=== PATIENT | female | born 1980 | race Two or more races ===

== ENCOUNTER 2020-04-04 14:36 | Emergency (ER) | payer MEDICAID ==
[~2020-04-04] VITALS: Ht 157.5 cm; Wt 72.6 kg
--- NOTE | 2020-04-04 15:10 | NUR ---
ED Nurse Note: PT walked in from home. She walks with a slight limp. Vitals are stable on RA. She is A/O/4. States she fell on 03/30 and twisted her both ankles. There is purple discoloration on both medial ankles. resting comfortably no signs of acute distress.
--- NOTE | 2020-04-04 16:19 | Emergency Room Report ---
History of Present Illness General Chief Complaint: Lower Extremity Injury Source: Patient Present Illness HPI 39-year-old female with no past medical history here status post fall x5 days. Reports that she missed steps and twisted both ankles. Complains of bruising of the left lateral ankle and foot. Has not taken medication for symptom relief. Is neurovascularly intact. Denies any tingling numbness. Has a steady gait. Rates pain 5-10 without radiation. Has full active motion. Denies , denies head injury or loss of consciousness. Denies chest pain or shortness of breath, no other associate symptoms. Denies taking any blood thinners. Allergies: Coded Allergies: No Known Allergies (Unverified , 04/04/20) COVID-19 Screening Contact w/high risk pt: No Experienced COVID-19 symptoms?: No COVID-19 Testing performed RIG MECHANIC: No Patient History Past Medical History: see triage record Past Surgical History: none Pertinent Family History: none Last Menstrual Period: 03/24 Now: No Immunizations: UTD Reviewed Nursing Documentation: PMH: Agreed; PSxH: Agreed Nursing Documentation-PMH Past Medical History: No Stated History Review of Systems All Other Systems: negative except mentioned in HPI Physical Exam Vital Signs Date Time Temp Pulse Resp B/P (MAP) Pulse Ox O2 Delivery O2 Flow Rate FiO2 04/04/20 15:01 97.7 83 18 121/73 (89) 96 Room Air Sp02 EP Interpretation: reviewed, normal General Appearance: normal inspection Head: normocephalic, atraumatic Eyes: bilateral eye normal inspection, bilateral eye PERRL ENT: hearing grossly normal, normal pharynx, no angioedema, normal voice Neck: full range of motion, supple/symm/no masses Respiratory: chest non-tender, lungs clear, normal breath sounds, speaking full sentences Cardiovascular #1: regular rate, rhythm, no edema Cardiovascular #2: 2+ carotid (R), 2+ carotid (L), 2+ radial (R), 2+ radial (L) , 2+ dorsalis pedis (R), 2+ dorsalis pedis (L) Gastrointestinal: normal bowel sounds, non tender, soft, non-distended, no guarding, no rebound Rectal: deferred Musculoskeletal: back normal, digits/nails normal, no calf tenderness, pelvis stable, non-tender, swelling - Left lateral malleolus, right lateral malleolus, other - Ecchymosis noted left lateral malleolus left medial malleolus Neurologic: alert, motor strength/tone normal, oriented x3, sensory intact, responsive, speech normal Psychiatric: judgement/insight normal, memory normal, mood/affect normal, no suicidal/homicidal ideation Skin: no rash Lymphatic: no adenopathy Procedures Splinting Splinting : Consent: Verbal Location: Bilateral ankles Pre-Made Type: WILBERT wrap Pre-Proc Neuro Vasc Exam: normal Post-Proc Neuro Vasc Exam: normal Patient Tolerated: Well Complications: None Progress Postop shoe applied to left foot Medical Decision Making PA Attestation All my diagnosis and treatment plans were reviewed ad discussed with my supervising physician Dr. Altamirano Diagnostic Impression: Primary Impression: Ankle sprain Additional Impression: Foot sprain ER Course 39-year-old female with no past medical history here status post fall x5 days. Reports that she missed steps and twisted both ankles. Complains of bruising of the left lateral ankle and foot. Has not taken medication for symptom relief. Is neurovascularly intact. Denies any tingling numbness. Has a steady gait. Rates pain 5-10 without radiation. Has full active motion. Denies , denies head injury or loss of consciousness. Denies chest pain or shortness of breath, no other associate symptoms. Denies taking any blood thinners. Ddx considered but are not limited to: ankle sprain, ankle strain, ankle fracture, ankle contusion, foot sprain, foot fracture, foot contusion Vital signs: are WNL, pt. is afebrile H&PE are most consistent with: Ankle sprain, foot sprain ORDERS: ankle x-ray, foot x-ray, Robaxin, Motrin, ED INTERVENTIONS: Motrin, postop shoe applied, Wilbert bandage applied DISCHARGE: At this time pt. is stable for d/c to home. Will provide printed patient care instructions, and any necessary prescriptions. Care plan and follow up instructions have been discussed with the patient prior to discharge. Patient take medication as directed, follow-up with primary care provider, if worsening symptoms return to the emergency room Other X-Ray Diagnostic Results Other X-Ray Diagnostic Results #1: X-Ray ordered: Left foot # of Views/Limited Vs Complete: 3 View Indication: Pain EP Interpretation: Yes PA Xray: Interpretation reviewed, by supervising MD, and agrees with findings. Interpretation: no dislocation, no soft tissue swelling, no fractures Impression: No acute disease Electronically Signed by: Robert Mirza PA-C Other X-Ray Diagnostic Results #2: X-Ray ordered: Left ankle # of Views/Limited Vs Complete: 3 View Indication: Pain EP Interpretation: Yes PA Xray: Interpretation reviewed, by supervising MD, and agrees with findings. Interpretation: no dislocation, no fractures Impression: No acute disease Electronically Signed by: Robert Mirza PA-C Other X-Ray Diagnostic Results #3: X-Ray ordered: Right foot # of Views/Limited Vs Complete: 3 View Indication: Pain EP Interpretation: Yes PA Xray: Interpretation reviewed, by supervising MD, and agrees with findings. Interpretation: no dislocation, no soft tissue swelling, no fractures Impression: No acute disease Electronically Signed by: Robert Mirza PA-C Other X-Ray Diagnostic Results #4: X-Ray ordered: Right ankle # of Views/Limited Vs Complete: 3 View Indication: Pain EP Interpretation: Yes PA Xray: Interpretation reviewed, by supervising MD, and agrees with findings. Interpretation: no dislocation, no soft tissue swelling, no fractures Impression: No acute disease Electronically Signed by: Robert Mirza PA-C Last Vital Signs Date Time Temp Pulse Resp B/P (MAP) Pulse Ox O2 Delivery O2 Flow Rate FiO2 04/04/20 15:01 97.7 83 18 121/73 (89) 96 Room Air Disposition: HOME, SELF-CARE Condition: Stable Scripts Ibuprofen* (MOTRIN*) 600 Mg Tablet 600 MG ORAL Q6H PRN for For Pain, #30 TAB 0 Refills Prov: Robert Perla 04/04/20 Methocarbamol* (ROBAXIN-500*) 500 Mg Tablet 500 MG ORAL TID PRN for For Pain, #15 TAB 0 Refills Prov: Robert Perla 04/04/20 Patient Instructions: Ankle Sprain, Foot Sprain Additional Instructions: Take medication as directed, follow primary care provider, if worsening symptoms return to the emergency room Robert Perla Apr 04, 2020 16:19
[2020-04-04] MEDS ORDERED: ROBAXIN-500MG ORAL (16:21)
[2020-04-04] MEDS ORDERED: IBUPROFEN600 M1 ORAL (16:21)
[2020-04-04 16:30] VITALS: BP 121/73
--- NOTE | 2020-04-04 16:30 | NUR ---
ER DISCHARGE NOTE: Patient is cleared to be discharged per ERMD, pt is aox4, on room air, with stable vital signs. pt was given dc and prescription instructions, pt was able to verbalize understanding, pt id band removed. pt is able to ambulate with steady gait. pt took all belongings.
--- NOTE | 2020-04-04 17:00 | Diagnostic Imaging Report ---
INDICATION: Foot and ankle pain TECHNIQUE: Frontal, lateral, and oblique views of the right foot and ankle COMPARISON: None FINDINGS: No acute fracture or dislocation. Joint spaces are maintained. No significant ankle joint effusion. Talar dome is unremarkable. Ankle mortise is maintained on these nonstress views. No acute soft tissue abnormality. IMPRESSION: No acute fracture or dislocation.
--- NOTE | 2020-04-04 17:03 | Diagnostic Imaging Report ---
INDICATION: Foot and ankle pain TECHNIQUE: XRAY Foot Complete L, XRAY Ankle Compl Min 3v L frontal, lateral, and oblique views of the left foot and ankle COMPARISON: None FINDINGS: No acute fracture or dislocation. Joint spaces are maintained. No significant ankle joint effusion. Talar dome is unremarkable. Ankle mortise is preserved on these nonstress views. There is mild to moderate diffuse soft tissue swelling. IMPRESSION: No acute fracture or dislocation
== END 2020-04-04 16:30 | disposition home or self-care (01) ==
LOC: EMR 16:18
DX: S93.402A Sprain of unspecified ligament of left ankle, initial encounter (principal); S93.401A Sprain of unspecified ligament of right ankle, initial encounter; S93.602A Unspecified sprain of left foot, initial encounter; X50.1XXA Overexertion from prolonged static or awkward postures, initial encounter; Y93.01 Activity, walking, marching and hiking; Y92.9 Unspecified place or not applicable
CPT/HCPCS: 73610; 73630; Z7502; 99284